=== PATIENT | female | born 2000 | race Two or more races ===

== ENCOUNTER 2019-01-18 14:33 | Outpatient (CLI) | payer OTHER ==
--- NOTE | 2019-01-18 15:54 | MRI Report ---
Reason: LOW BACK PAIN Procedure Date: 01/18/2019 Accession Number: [id number] / [id number] Procedure: MRI - Lumbar Spine W/O CPT Code: FULL RESULT: EXAM: MRI LUMBAR SPINE WITHOUT CONTRAST EXAM DATE: 01/18/2019 03:19 PM. CLINICAL HISTORY: Low back pain. COMPARISON: None. TECHNIQUE: Multiplanar, multisequence T1-weighted and fluid-sensitive sequences of the lumbar spine from T12 to S1 without contrast. Other: None. FINDINGS: Spinal Canal: The conus terminates at L1. The conus medullaris and cauda equina are unremarkable. Alignment: Straightening of the normal lumbar lordosis. There is minimal grade 1 retrolisthesis of L3 on L4 and L5 on S1. Bone Marrow: Five [id number] lumbar vertebral bodies are assumed. No gross fractures or bone lesions. No bone marrow replacement. Disk Levels/Facets: T12-L1: Unremarkable. L1-L2: Unremarkable. L2-L3: Unremarkable. L3-L4: Tiny central disk protrusion with associated annular fissure. Minimal bilateral arthritic facet disease. No spinal canal stenosis. No definite neural foraminal narrowing. L4-L5: Mild endplate degenerative change with mild loss of disk height and disk desiccation. Small central disk protrusion. Bilateral arthritic facet disease and prominent epidural fat. Mild spinal canal stenosis and effacement of the lateral recesses. Mild right neural foraminal narrowing. L5-S1: Mild endplate degenerative change with mild loss of disk height and slight disk desiccation. Small central to right subarticular disk protrusion. Bilateral arthritic facet disease. Mild spinal canal stenosis and effacement of right lateral recess with mass effect on the traversing right S1 nerve root. Mild right neural foraminal narrowing. Musculature: Normal. No edema or fatty atrophy. Other: The partially visualized retroperitoneum is unremarkable. IMPRESSION: 1. Straightening of the normal lumbar lordosis. 2. There is minimal grade 1 retrolisthesis of L3 on L4 and L5 on S1. 3. Mild multilevel degenerative changes. L3-L4: Tiny central disk protrusion with associated annular fissure. No spinal canal stenosis. No definite neural foraminal narrowing. L4-L5: Small central disk protrusion. Mild spinal canal stenosis and effacement of the lateral recesses. Mild right neural foraminal narrowing. L5-S1: Small central to right subarticular disk protrusion. Mild spinal canal stenosis and effacement of right lateral recess with mass effect on the traversing right S1 nerve root. Mild right neural foraminal narrowing. Comment: The following findings are so common in adults without low back pain that while we report their presence, they must be interpreted with caution and in the context of the clinical situation. (Reference Fausto et al, Spine 2001) Prevalence of findings in patients without low back pain: Disk degeneration (any evidence): 92% Disk desiccation/T2 signal loss: 83% Disk height loss: 56% Disk bulge: 64% Disk protrusion: 32% Annular tear/high intensity zone: 38% RADIA
== END 2019-01-18 14:34 | disposition home or self-care (01) ==
LOC: DI 14:33
PROVIDERS: ATTEND Student in an Organized Health Care Education/Training Program
DX: M51.26 Other intervertebral disc displacement, lumbar region (principal); M47.9 Spondylosis, unspecified; M43.16 Spondylolisthesis, lumbar region; M43.17 Spondylolisthesis, lumbosacral region; M51.36 Other intervertebral disc degeneration, lumbar region; M48.061 Spinal stenosis, lumbar region without neurogenic claudication; M51.27 Other intervertebral disc displacement, lumbosacral region; M48.07 Spinal stenosis, lumbosacral region
CPT/HCPCS: 72148

== ENCOUNTER 2020-05-08 00:08 | Emergency (ER) | payer OTHER ==
[2020-05-08 00:21] VITALS: BP 123/78
--- NOTE | 2020-05-08 00:25 | ED Physician Documentation ---
PD HPI HEAD INJURY - Stated complaint Stated Complaint: NOSE INJ - Chief complaint Chief Complaint: Laceration - History obtained from History obtained from: Patient - History of Present Illness Mechanism of head injury: Blow Where head injury occurred: Work Timing - onset: Enter time (23:30), Today Pain level now: 5 Location of injury: Front (nasal bridge) Quality of pain: Pain Associated symptoms: No: LOC, AMS, Neck pain, Nasal drainage Symptoms worsen with: Palpation Contributing factors: No: Anticoagulated, Intoxicated Recently seen: Not recently seen - Additional information Additional information: at work tonight, at approximately 11:30 PM, wearing corrective eyeglasses and was applying protective goggles when she lost java software of the goggles while the elastic was stretched, causing them to snap forcefully onto her face, striking her glasses which, in turn, caused a nasal bridge laceration with associated swelling and pain Review of Systems Eyes: reports: Reviewed and negative Nose: denies: Epistaxis, Sinus pressure / pain Skin: reports: Laceration (s) PD PAST MEDICAL HISTORY - Past Medical History Past Medical History: No - Past Surgical History Past Surgical History: No - Present Medications Home Medications: Ambulatory Orders Medication Instructions Recorded Confirmed Hydrocodone/Acetaminophen 1 - 2 each PO Q6H PRN #14 tablet 05/08/20 [Hydrocodon-Acetaminophen 5-325] - Allergies Allergies/Adverse Reactions: Allergies Allergy/AdvReac Type Severity Reaction Status Date / Time No Known Drug Allergies Allergy Verified 05/08/20 00:21 - Living Situation Living Arrangement: reports: At home PD ED PE NORMAL - Vitals Vital signs reviewed: Yes - General General: Alert and oriented X 3, No acute distress, Well developed/nourished - HEENT HEENT: PERRL, EOMI, Other (no sinus tenderness or crepitus nor maxillary/dental tenderness/laxity to suggest laforte fx) PD ED PE EXPANDED - HEENT HEENT: Other (no septal hematoma either nare) HEENT Visual: 1 - laceration (1 cm length) 2 - swelling, tenderness Results - Vitals Vitals: Vital Signs - 24 hr 05/08/20 05/08/20 00:18 01:53 Temperature 36.9 C Heart Rate 102 H 82 Respiratory 17 17 Rate Blood Pressure 123/78 O2 Saturation 99 99 Oxygen O2 Source Room air Procedures - Laceration (location) Nose Length in cm: 1 Wound type: Linear Neurovascular status: Sensory intact, Vascular intact Wound Preparation: Chlorhexadine Skin layer closure: Dermabond Other: Patient tolerated well, No complications, Tetanus booster given Complexity: Simple PD MEDICAL DECISION MAKING - ED course Complexity details: considered differential, d/w patient Departure - Departure Disposition: Home, Self Care Clinical Impression: Nasal laceration Condition: Good Instructions: ED Contusion Nasal Vs Fx No X Ray, ED Laceration Facial Skin Glue Follow-Up: STACY Malik [Provider Group] - Within 3 Days Prescriptions: Hydrocodone/Acetaminophen [Hydrocodon-Acetaminophen 5-325] 1 - 2 each PO Q6H PRN #14 tablet PRN Reason: pain Forms: Activity restrictions Discharge Date/Time: 05/08/20 01:50
[2020-05-08] MEDS ORDERED: HYDROcod/ACETAM 5/325 MG TABLET PO STA (00:43)
[2020-05-08] MEDS ORDERED: ONDANSETRON ODT 4 MG TABLET TL STA (00:43)
[2020-05-08] MEDS ORDERED: TETANUS/DIPHTHERIA/PERTUSSIS 0.5 ML SYRINGE IM ONE (00:43)
== END 2020-05-08 01:50 | disposition home or self-care (01) ==
LOC: ED 00:08
DX: S01.21XA Laceration without foreign body of nose, initial encounter (principal); W45.8XXA Other foreign body or object entering through skin, initial encounter; Y99.0 Civilian activity done for income or pay; Z23 Encounter for immunization
CPT/HCPCS: 12011; 90471; 90715; 99283; A9270; Q0162

== ENCOUNTER 2022-10-19 18:59 | Emergency (ER) | payer OTHER ==
[2022-10-19] MEDS ORDERED: IBUPROFEN 600 MG TABLET PO STA (20:12)
[2022-10-19] MEDS ORDERED: guaiFENesin/CODEINE 5 ML UDC PO STA (20:12)
--- NOTE | 2022-10-19 20:15 | ED Physician Documentation ---
PD HPI URI - Stated complaint Stated Complaint: COUGH,SORE THROAT,BODY PX - Chief complaint Chief Complaint: Fever - History obtained from History obtained from: Patient - Additional information Additional information: Otherwise healthy 22-year-old woman got acutely ill today with fevers, body aches, cough, sore throat, runny nose. [place] but does not know the results yet. She had a single episode of posttussive emesis today. She is not nauseous currently. Review of Systems Constitutional: reports: Fever, Chills, Myalgias, Fatigue Nose: reports: Rhinorrhea / runny nose Throat: reports: Sore throat Respiratory: reports: Cough. 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 : None HEENT: None Psych: None Musculoskeletal: None Derm: None - Past Surgical History Past Surgical History: Yes General: Other - Present Medications Home Medications: Ambulatory Orders Medication Instructions Recorded Confirmed Ibuprofen [Motrin] 600 mg PO Q6H PRN #30 tab 10/19/22 guaiFENesin/CODEINE [Robitussin AC] 5 - 10 ml PO Q6H PRN #120 ml 10/19/22 - Allergies Allergies/Adverse Reactions: Allergies Allergy/AdvReac Type Severity Reaction Status Date / Time No Known Drug Allergies Allergy Verified 10/19/22 19:11 - Social History Does the pt smoke?: Yes Smoking Status: Current every day smoker Does the pt drink ETOH?: Yes Does the pt have substance abuse?: No - Immunizations Immunizations are current?: No - POLST Patient has POLST: No PD ED PE NORMAL - Vitals Vital signs reviewed: Yes - General General: Alert and oriented X 3 - HEENT HEENT: PERRL, Pharynx benign - Neck Neck: Supple, no meningeal sign, No bony TTP - Cardiac Cardiac: RRR, No murmur - Respiratory Respiratory: No respiratory distress, Clear bilaterally - Abdomen Abdomen: Non tender - Back Back: No CVA TTP, No spinal TTP - Derm Derm: Normal color, Warm and dry - Extremities Extremities: No edema, No calf tenderness / cord - Neuro Neuro: Alert and oriented X 3, Normal speech Results - Vitals Vitals: Vital Signs - 24 hr 10/19/22 10/19/22 19:09 20:23 Temperature 37.6 C 37.5 C Heart Rate 119 H 103 H Respiratory 20 18 Rate Blood Pressure 115/87 H 114/78 O2 Saturation 99 97 Oxygen O2 Source Room air - Labs Labs: Laboratory Tests 10/19/22 20:19 Nasal Adenovirus (PCR) NOT DETECTED Nasal B. parapertussis DNA (PCR) NOT DETECTED Nasal Coronavir 229E PCR NOT DETECTED Nasal Coronavir HKU1 PCR NOT DETECTED Nasal Coronavir NL63 PCR NOT DETECTED Nasal Coronavir OC43 PCR NOT DETECTED Nasal Enterovir/Rhinovir PCR NOT DETECTED Nasal Influenza A H3 PCR DETECTED A Nasal Influenza B PCR NOT DETECTED Nasal Parainfluen 1 PCR NOT DETECTED Nasal Parainfluen 2 PCR NOT DETECTED Nasal Parainfluen 3 PCR NOT DETECTED Nasal Parainfluen 4 PCR NOT DETECTED Nasal RSV (PCR) NOT DETECTED Nasal B.pertussis DNA PCR NOT DETECTED Nasal C.pneumoniae (PCR) NOT DETECTED Trip Human Metapneumo PCR NOT DETECTED Nasal M.pneumoniae (PCR) NOT DETECTED Nasal SARS-CoV-2 (PCR) NOT DETECTED PD MEDICAL DECISION MAKING - ED course ED course: 22-year-old woman with flulike illness, likely influenza A given current outbreak. Will test for same and other respiratory pathogens given [employer] panel. Given that she is young and healthy I would not further consider Tamiflu so she will be discharged pending results and I will call her later with results. Called and left voicemail at approximately 9:25 PM for patient to call me back with positive influenza A result Departure - Departure Disposition: 01 Home, Self Care Clinical Impression: Viral syndrome Condition: Good Record reviewed to determine appropriate education?: Yes Instructions: ED Flu Prescriptions: Ibuprofen [Motrin] 600 mg PO Q6H PRN #30 tab PRN Reason: Pain guaiFENesin/CODEINE [Robitussin AC] 5 - 10 ml PO Q6H PRN #120 ml PRN Reason: Cough Comments: I sent your prescriptions electronically [facility] in [place]. As discussed I suspect you have influenza, I will call you later at [phone] with results. Return for new or worsening symptoms. Do not drink or drive while taking prescription cough syrup. Forms: Activity restrictions Discharge Date/Time: 10/19/22 20:24
[2022-10-19 20:25] VITALS: BP 114/78
[2022-10-19 21:14] LABS: B. PARAPERTUSSIS- RESP PCR PAN NOT DETECTED; CORONAVIRUS 229E-RESP PCR NOT DETECTED; CORONAVIRUS HKU1-RESP PCR NOT DETECTED; CORONAVIRUS NL63-RESP PCR NOT DETECTED; CORONAVIRUS OC43-RESP PCR NOT DETECTED; HUMAN METAPNEUMOVIRUS NOT DETECTED; INFLUENZA A H3- RESP PCR PANEL DETECTED; INFLUENZA B - RESP PCR PANEL NOT DETECTED; PARAINFLUENZA VIRUS 1 NOT DETECTED; PARAINFLUENZA VIRUS 2 NOT DETECTED; PARAINFLUENZA VIRUS 3 NOT DETECTED; PARAINFLUENZA VIRUS 4 NOT DETECTED; RHINOVIRUS/ENTEROVIRUS NOT DETECTED; RSV- RESP PCR PANEL NOT DETECTED; SARS-CoV-2 -RESP PCR PANEL NOT DETECTED
[2022-10-19 21:15] LABS: B. PERTUSSIS- RESP PCR PANEL NOT DETECTED; C. PNEUMONIAE- RESP PCR PANEL NOT DETECTED; M. PNEUMONIAE- RESP PCR PANEL NOT DETECTED
== END 2022-10-19 20:24 | disposition home or self-care (01) ==
LOC: ED 18:59
DX: J11.1 Influenza due to unidentified influenza virus with other respiratory manifestations (principal); F17.200 Nicotine dependence, unspecified, uncomplicated; Z20.822 Contact with and (suspected) exposure to COVID-19
CPT/HCPCS: 87633; 99282; 99283; A9270